=== PATIENT | male | born 1950 | race Caucasian/White ===

== ENCOUNTER 2024-10-05 08:21 | Inpatient (IN) ==
--- NOTE | 2024-09-04 10:11 | PAT Medication Instructions ---
Medication Instructions Date of Service September 04, 2024 Home Medications albuterol 90 mcg/actuation aerosol inhaler 90 mcg inhalation QID PRN amlodipine 2.5 mg tablet 2.5 mg PO QAM aspirin 81 mg capsule 81 mg PO QAM atorvastatin 40 mg tablet 40 mg PO HS lisinopril 10 mg tablet 10 mg PO QAM memantine 5 mg tablet 5 mg PO BID omeprazole 20 mg tablet,delayed release 20 mg PO QPM pregabalin 75 mg capsule 75 mg PO TID ASK your prescriber and surgeon aspirin 81 mg capsule 81 mg PO QAM DO NOT take the morning of surgery lisinopril 10 mg tablet 10 mg PO QAM Take morning of surgery With a small sip of water, OTHERWISE NOTHING TO EAT OR DRINK AFTER MIDNIGHT: albuterol 90 mcg/actuation aerosol inhaler 90 mcg inhalation QID PRN(use if needed; please bring with you to hospital day of surgery if possible) amlodipine 2.5 mg tablet 2.5 mg PO QAM memantine 5 mg tablet 5 mg PO BID pregabalin 75 mg capsule 75 mg PO TID Take evening before surgery albuterol 90 mcg/actuation aerosol inhaler 90 mcg inhalation QID PRN(if needed) atorvastatin 40 mg tablet 40 mg PO HS memantine 5 mg tablet 5 mg PO BID omeprazole 20 mg tablet,delayed release 20 mg PO QPM pregabalin 75 mg capsule 75 mg PO TID Other Notes If you have any questions please call us at [phone] or [phone] or [phone] or [phone]
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
[2024-10-05] MEDS ORDERED: PROPOFOL IV EMULSION 10 MG/ML 20 ML VIAL IV ONE (09:07)
[2024-10-05] MEDS ORDERED: ROCURONIUM BROMIDE 10 MG/ML 5 ML VIAL IV ONE (09:07)
[2024-10-05] MEDS ORDERED: DEXAMETHASONE SOD INJ 4 MG/ML VIAL ONE (09:07)
[2024-10-05] MEDS ORDERED: LIDOCAINE 2% 2 ML VIAL/AMP(20MG/ML) INFIL ONE (09:07)
[2024-10-05] MEDS ORDERED: MIDAZOLAM HCL 1 MG/ML 2ML VIAL ONE (09:07)
[2024-10-05] MEDS ORDERED: ONDANSETRON INJ 2 MG/ML 2 ML VIAL ONE (09:07)
[2024-10-05] MEDS ORDERED: SUGAMMADEX SODIUM 200 MG/2 ML VIAL IV ONE (09:08)
[2024-10-05] MEDS: GABAPENTIN 300 MG CAP PO SCH (09:20)
[2024-10-05] MEDS: ACETAMINOPHEN 500 MG TAB PO SCH (09:20)
[2024-10-05] MEDS: CeleBREX 200 MG CAP PO SCH (09:23)
--- NOTE | 2024-10-05 09:51 | History & Physical Bridge Note ---
Date of Service October 05, 2024 History & Physical Bridge Note I have examined the patient, reviewed the History & Physical and in the interval since the performance of the History & Physical I have noted the following changes of clinical significance: no changes noted
--- NOTE | 2024-10-05 09:52 | History & Physical Report ---
Date of Service October 05, 2024 Assessment & Plan (1) Two-level lumbosacral spondylosis with radiculopathy: Plan: L2-S1 fusion, L2-L4 decompression, L2-L4 hardware removal History of Present Illness Chief Complaint: Back and leg pain Primary Care Provider: Luisa Robles MD This is a 74-year-old male who presents with chronic persistent back and leg pain after failing course of nonoperative care is here for surgical invention. Allergies Allergy/AdvReac Type Severity Reaction Status Date / Time oxycodone AdvReac Mild constipatio Verified 10/05/24 08:27 n ibuprofen AdvReac Unknown G I UPSET Verified 10/05/24 08:27 Home Medications Medication Instructions Recorded Confirmed Type albuterol 90 mcg/actuation aerosol 90 mcg inhalation QID PRN sob 09/03/24 10/05/24 History inhaler amlodipine 2.5 mg tablet 2.5 mg PO QAM 09/03/24 10/05/24 History aspirin 81 mg capsule 81 mg PO QAM 09/03/24 10/05/24 History atorvastatin 40 mg tablet 40 mg PO HS 09/03/24 10/05/24 History lisinopril 10 mg tablet 10 mg PO QAM 09/03/24 10/05/24 History memantine 5 mg tablet 5 mg PO BID 09/03/24 10/05/24 History omeprazole 20 mg tablet,delayed 20 mg PO QPM 09/03/24 10/05/24 History release pregabalin 75 mg capsule 75 mg PO TID 09/03/24 10/05/24 History Tylenol Extra Strength 500 mg PO TID PRN Pain 10/05/24 10/05/24 History cholecalciferol (vitamin D3) 125 125 mcg PO BID 10/05/24 10/05/24 History mcg (5,000 unit) tablet (Vitamin D3) melatonin 10 mg PO HS PRN Sleep 10/05/24 10/05/24 History Past Med/Surg History Problem List Two-level lumbosacral spondylosis with radiculopathy Post-operative state (Acute 03/11/14) Medical History (Updated 10/05/24 @ 09:51 by Igor M Lizzie, DO) Spinal cord stimulator status [employer] and will bring remote DOS GERD (gastroesophageal reflux disease) well controlled and stable Hyperlipidemia Hypertension Chronic obstructive pulmonary disease breathing well controlled and stable Surgical History Hx of cataract surgery (09/12/24) Right cataract surgery 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) History of back surgery states had some rods placed in 2021 and then ended up with more issues from surgeon in [place] and currently using walker Hx of basal cell carcinoma excision Social History Smoking Status: Former smoker Cigarettes Per Day: 2 packs/day x 15-20 years; Smoking End Date: Quit 1999; Second Hand Exposure: No; Do You Dip or Chew Tobacco: Yes (occasional (1 can/2 weeks- advised); Tobacco Cessation Education Requested by Patient: No Hx Alcohol Use: No Hx Substance Use: No Preferred Language: Sami Communication Ability: Effective Beef Grader Required: No Beliefs That Will Affect Care: None Current Living Situation: Spouse Other Information That Helps Us Care for You: No Feels Safe at Home: Yes Safety Concerns: Feels Safe At This Time Assistive Devices: Cane, Glasses and Walker Physical Exam Physical Exam: Patient is alert and oriented Heart regular rhythm lungs clear Results & Data Results & Data Vital Signs (Past 12 Hours) Vital Signs Temp Pulse Resp BP O2 Del Method 10/05/24 08:46 36.5 C 62 18 188/94 H Room Air
[2024-10-05] MEDS: LR 15ML/HR IV SCH (10:00)
[2024-10-05] MEDS ORDERED: ALBUMIN HUMAN 5% 12.5 GM/250 ML VIAL IV ONE (10:06)
[2024-10-05] MEDS: LR 60ML/HR IV SCH (10:33)
[2024-10-05] MEDS: ceFAZolin 330 MG/ML 1 GM VIAL ONE (11:09)
[2024-10-05] MEDS: BUPIVACAINE/EPINEPHRINE 0.25% 1:200,000 30 ML VIAL ONE (11:09)
[2024-10-05] MEDS: SURGICEL ABSORB HEMOSTAT 2IN X 14IN TOP ONE (11:21)
[2024-10-05] MEDS: FLOSEAL HEMOSTATIC MATRIX 10ML TOP ONE (13:18)
[2024-10-05] MEDS ORDERED: SODIUM CHLORIDE 0.9% PF INJ 10 ML VIAL ONE (13:25)
[2024-10-05] MEDS ORDERED: HYDROmorphone INJ 2 MG/ML SYR/VIAL ONE (13:25)
--- NOTE | 2024-10-05 13:36 | Operative Report ---
Post Operative Report Pre & Post Diagnosis Operation Date: 10/05/24 10:05 Pre-Op Diagnosis: Two-Level Lumbosacral Spondylosis with Radiculopathy Post-Op Diagnosis: Two-Level Lumbosacral Spondylosis with Radiculopathy I identified the patient and participated in the time-out.: Yes Procedure Operation Date: 10/05/24 10:05 Actual Procedures #1 removal of posterior instrumentation L2-L4. #2 exploration of fusion L2-L4. #3 lumbar decompression with bilateral medial facetectomies and foraminotomies L4-L5 L5-S1. #4 posterior spinal fusion L4-S1. #5 placement posterior instrumentation L4-S1 using camber. #6 interbody fusion L4-L5 L5-S1. #7 placement Spira 12 x 26 mm x 2 at L4-5 and 10 x 26 mm x 2 at L5-S1. #8 placement locally harvested morselized autograft and posterior gutters. #9 please infuse collagen sponge bath Koros in the posterior lateral gutters and os design interbody space. #10 placement of versa wrap over the exposed dura. Surgeon Igor Samuel, DO Numerical Tool Programmer Romero Apple Estimated Blood Loss 900 Findings Consistent with Post-Op Diagnosis Specimens None Indications This is a 74-year-old male presents from his diagnosis of failed course of nonoperative care is here for surgical intervention. Description of Procedure Patient was met with identified informed consent obtained. Patient was then taken to the operative suite underwent intubation placed in a prone position on the Lee table atop the Jose Cruz frame. All bony prominences well-padded eyes inspected to ensure no external pressure placed upon them. This point the lumbar spine was prepped and draped in normal sterile fashion. Sharp dissection with the assistance of Bovie cautery from down to and exposing the instrumentation at L2-L3-L4 and the lamina and transverse processes of L4-L5 and the sacral ala bilaterally. And then proceeded move the hardware bilaterally from L2-L4. I explored the fusion mass noting it to be mature and intact. And performed a complete laminectomy of L5 with bilateral medial facetectomies and foraminotomies followed by complete laminectomy of L4 with bilateral medial facetectomies and foraminotomies addressing severe neural compression at all levels. Pedicle screws were then placed at L4-L5 and S1 levels bilaterally with assistance of fluoroscopy and appropriate sized jolene contoured and placed. By way of transforaminal approach on the left a discectomy of all 5 S1 was performed endplates curetted to subcortical bleeding bone and a 10 x 26 mm spiral cage tapped in position. Then proceeded to the right transforaminal region at L5-S1. Discectomy performed. Endplates guided to subcortical bony bone. A second 10 x 26 mm spiral cage tapped into position. Then proceeded to L4-[address] of transforaminal approach on the right discectomy was performed. Endplates coated to subcortical bleeding bone and a 12 x 26 mm spiral cage jomar ed into position. This time I then proceeded to the left transforaminal region at L4-5 and again performed a discectomy. Endplates guided to subcortical bleeding bone and a second 12 x 26 mm spiral cage tapped into position. Please note all cages were packed with os design bone graft. The rods were then locked in a 5 position bilaterally. The transverse processes of L for L5 and the sacral ala burred to subcortical bleeding bone. Infuse collagen sponge, with Koros and local autograft placed in the posterior gutters. First wrap placed over the exposed dura. 15 round TEJ drain inserted. The incision was then closed with 1 Vicryl the fascia 2-0 Vicryl subcutaneously and 4 Monocryl for final skin closure. Steri-Strips sterile dressing placed. Patient waken taken PACU stable condition. Please note Romero Apple was present the patient positioning complex question surgery and final skin closure. Im ordering 10 grams of Collagen Powder ([facility] A6010 Primary Dressing) and 10 bordered super absorbent ([facility] A6196 Secondary Dressing) to treat an incision wound that was caused by a spine procedure. The incision is approximately 2 cm(W) x 2 cm(L) down to the spinal column and epidural space 2 cm (D) in size and is a full thickness wound showing no signs of infection. Collagen comes in 1 gram packets so 10 packets were ordered. Given the size of the wound, with moderate exudate I chose to order a 10 day supply. The patient will be provided instructions for proper application of the collagen wound kit. The patient will be asked to apply the collagen powder daily and then cover it with sterile dressings dispensed. Collagen was selected as I expect the collagen to attract monocytes and fibroblasts, act as a sacrificial substrate for MMPs, and ultimately proved a matrix for tissue and vessel growth. The collagen will act as a primary dressing in this scenario. It is medically necessary for proper healing of these wounds to improve bioavailability and contact with each wound surface, this is also to help prevent infection of wounds and promote healing ultimately leading to a better healing outcome and limit the risk of infection. I attest to the content of the Intraoperative Record and any orders documented therein. Any exceptions are noted below.
[2024-10-05] MEDS ORDERED: PROMETHAZINE HCL 6.25 MG in SODIUM CHLORIDE 0.9% 50 ML IV PRN (14:55)
[2024-10-05] MEDS ORDERED: ATROPINE SULFATE 0.1 MG/ML 10ML SYR IV PRN (14:55)
[2024-10-05] MEDS ORDERED: HYDROmorphone INJ 2 MG/ML SYR/VIAL IV PRN (14:55)
[2024-10-05 15:10] LABS: Hematocrit (blood only) 29.6 % (42.0-52.0); Hemoglobin 9.5 g/dl (14.0-18.0)
--- NOTE | 2024-10-05 15:10 | Anesthesiology Progress Note ---
Date of Service October 05, 2024 Anesthesia Post Procedure Vital Signs Vital Signs: Temp Pulse Resp BP Pulse Ox O2 Del Method O2 Flow Rate 10/05/24 14:40 67 14 189/83 H 99 Oxymask 5 10/05/24 14:30 67 15 182/92 H 99 Oxymask 5 10/05/24 14:20 69 18 178/99 H 98 Oxymask 5 10/05/24 14:10 72 18 145/92 H 98 Oxymask 5 10/05/24 14:01 36.1 C L 74 18 166/97 H 99 Oxymask 5 10/05/24 08:46 36.5 C 62 18 188/94 H Room Air Transfer of Care Handoff Completed per policy Notes Mental Status: alert / awake / arousable and participated in evaluation Nausea / Vomiting: adequately controlled Pain: adequately controlled Airway Patency, RR, SpO2: stable & adequate BP & HR: stable & adequate and see Notes below Hydration State: stable & adequate Anesthetic Complications: no major complications apparent and Pt Satisfied with anesthetic care Notes: Pt with blood in urinary catheter with no urine flow. Bladder scan revealed ~300 ml urine on arrival to PACU increasing to 400 on repeat ~1 hour later. This was communicated to Dr. Samuel.
--- NOTE | 2024-10-05 15:31 | Fluoroscopy Report ---
INTRAOPERATIVE RADIOGRAPHS CLINICAL HISTORY: L2-S1 spinal fusion. Fluoro time: 28 seconds Ka,r: 19.55 mGy FINDINGS: 2 spot fluoroscopic views of the lumbar spine are presented. There is evidence of discectom y at L2-L3, L3-L4, L4-L5, and L5-S1. There or findings of multilevel laminectomy and posterior fusion . Interpedicular screws are seen within the bodies of L4, L5, and S1. The hardware appears intact. A neurostimulator device is partially imaged. IMPRESSION: Intraoperative images from lumbar spinal fusion surgery as above. Electronically signed by: Adam Lanza M.D. 10/05/2024 3:30 PM
[2024-10-05] MEDS ORDERED: ALUMINUM/MAGNESIUM SUSP 30 ML UDC PO PRN (15:58)
[2024-10-05] MEDS ORDERED: SOD PHOSPHATE/SOD BIPHOSPHATE ENEMA 132 ML BTL PR PRN (15:58)
[2024-10-05] MEDS ORDERED: FAMOTIDINE 20 MG TAB PO PRN (15:58)
[2024-10-05] MEDS ORDERED: ACETAMINOPHEN 500 MG TAB PO PRN (15:58)
[2024-10-05] MEDS ORDERED: HYDROmorphone INJ 0.5 MG/0.5 ML SYR IV PRN (15:58)
[2024-10-05] MEDS ORDERED: DO NOT ADMINISTER FLU VACCINE PRN (15:58)
[2024-10-05] MEDS ORDERED: ONDANSETRON 4 MG OD TAB PO PRN (15:58)
[2024-10-05] MEDS ORDERED: DO NOT ADMINISTER PNEUMOCOCCAL VACCINE PRN (15:58)
[2024-10-05] MEDS ORDERED: PROMETHAZINE 12.5 MG/50.5 ML BAG IV PRN (15:58)
[2024-10-05] MEDS ORDERED: ACETAMINOPHEN 1,000 MG/100 ML VIAL IV PRN (15:58)
[2024-10-05] MEDS ORDERED: MAGNESIUM HYDROXIDE SUSP 30 ML UDC PO PRN (15:58)
[2024-10-05] MEDS ORDERED: HYDROmorphone INJ 1 MG/ML SYRINGE IV PRN (15:58)
[2024-10-05] MEDS ORDERED: HYDROCODONE/ACETAMOPHEN 5/325MG TAB PO PRN (15:58)
[2024-10-05] MEDS ORDERED: LORazepam 0.5 MG TAB PO PRN (15:58)
[2024-10-05] MEDS ORDERED: diphenhydrAMINE Capsule 25 MG CAP PO PRN (15:58)
[2024-10-05] MEDS ORDERED: NALOXONE HCL 0.4 MG/1 ML VIAL/CARP IV PRN (15:58)
[2024-10-05] MEDS ORDERED: MELATONIN 3 MG TAB PO PRN (15:58)
[2024-10-05] MEDS ORDERED: ALBUTEROL HFA 8 GM INHALER INH PRN (16:10)
--- NOTE | 2024-10-05 16:35 | Consultation ---
Date of Consultation October 05, 2024 Assessment & Plan (1) Post-operative state: (2) Two-level lumbosacral spondylosis with radiculopathy: Two-Level Lumbosacral Spondylosis with Radiculopathy -S/P lumbar decompression, fusion surgery by Dr. Samuel on 10/05/2024 Postoperative acute blood loss anemia Pain is controlled Monitor CBC Bowel regimen to prevent constipation Activity & DVT Px as per Primary team Incentive spirometry PT OT when appropriate No indication for blood transfusion currently Bladder scan as needed Hypertension Continue lisinopril, amlodipine with holding parameters Monitor blood pressure Hyperlipidemia Continue atorvastatin COPD Quit smoking many years ago Currently no signs of exacerbation Not on any maintenance inhalers GERD Continue Protonix DVT Px: as per Primary team CODE STATUS Full code History of Present Illness Requesting Physician: Dr. Samuel Reason for Consultation: Postop medical management Attending Physician: Igor Samuel, DO History of Present Illness Patient is a 74-year-old male with history of hypertension, hyperlipidemia, COPD, prior tobacco use, GERD and other medical problems was consulted for postop medical management. Patient admits to have pain at catheter site which resolved after changing the catheter. He denies any significant back pain at surgical site but admits to have mild tingling of the feet bilaterally. Denies any history of chest pain, dyspnea, dizziness, cough, fever, chills, headache, nausea, vomiting, abdominal pain, dysuria. Allergies Allergy/AdvReac Type Severity Reaction Status Date / Time oxycodone AdvReac Mild constipatio Verified 10/05/24 08:27 n ibuprofen AdvReac Unknown G I UPSET Verified 10/05/24 08:27 Home Medications Medication Instructions Recorded Confirmed Type albuterol 90 mcg/actuation aerosol 90 mcg inhalation QID PRN sob 09/03/24 10/05/24 History inhaler amlodipine 2.5 mg tablet 2.5 mg PO QAM 09/03/24 10/05/24 History aspirin 81 mg capsule 81 mg PO QAM 09/03/24 10/05/24 History atorvastatin 40 mg tablet 40 mg PO HS 09/03/24 10/05/24 History lisinopril 10 mg tablet 10 mg PO QAM 09/03/24 10/05/24 History memantine 5 mg tablet 5 mg PO BID 09/03/24 10/05/24 History omeprazole 20 mg tablet,delayed 20 mg PO QPM 09/03/24 10/05/24 History release pregabalin 75 mg capsule 75 mg PO TID 09/03/24 10/05/24 History Tylenol Extra Strength 500 mg PO TID PRN Pain 10/05/24 10/05/24 History cholecalciferol (vitamin D3) 125 125 mcg PO BID 10/05/24 10/05/24 History mcg (5,000 unit) tablet (Vitamin D3) melatonin 10 mg PO HS PRN Sleep 10/05/24 10/05/24 History Patient History Medical History Spinal cord stimulator status [employer] and will bring remote DOS GERD (gastroesophageal reflux disease) well controlled and stable Hyperlipidemia Hypertension Chronic obstructive pulmonary disease breathing well controlled and stable Surgical History Hx of cataract surgery (09/12/24) Right cataract surgery 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) History of back surgery states had some rods placed in 2021 and then ended up with more issues from surgeon in [place] and currently using walker Hx of basal cell carcinoma excision Social History Smoking Status: Former smoker Cigarettes Per Day: 2 packs/day x 15-20 years; Smoking End Date: Quit 1999; Second Hand Exposure: No; Do You Dip or Chew Tobacco: Yes (occasional (1 can/2 weeks- advised); Tobacco Cessation Education Requested by Patient: No Hx Alcohol Use: No Hx Substance Use: No Preferred Language: Maori Communication Ability: Effective Managing Consultant Clinical Professor Required: No Beliefs That Will Affect Care: None Current Living Situation: Spouse Other Information That Helps Us Care for You: No Feels Safe at Home: Yes Safety Concerns: Feels Safe At This Time Assistive Devices: Cane, Glasses and Walker Review of Systems Review of Systems: All systems reviewed & are unremarkable except as noted in Subjective Physical Exam Physical Exam: Physical Exam: Vitals signs as noted above General Appearance:Moderately built and nourished, no apparent distress Head: normocephalic, Atraumatic Eyes: normal inspection, EOMI Neck: supple, Trachea midline Respiratory/Chest: Normal breath sounds, CTA, No accessory muscle use Cardiovascular: S1, S2, No murmur Abdomen/GI:Soft, Non tender, Bowel sounds present Back: Surgical site in dressing, +drain :+Fernandes Extremities/Musculoskeletal:normal inspection, no edema Neurologic/Psych:AAOX3, grossly no focal neurological deficits Skin: normal color, warm Results & Data Vital Signs (Past 12 Hours) Vital Signs Temp Pulse Pulse Resp BP Pulse Ox O2 Del Method 10/05/24 16:23 71 142/85 H 92 Room Air 10/05/24 15:45 36.3 C L 72 18 136/86 93 Room Air 10/05/24 15:30 71 15 170/89 H 98 Nasal Cannula 10/05/24 15:20 36.4 C L 71 15 181/90 H 98 Nasal Cannula 10/05/24 15:10 74 15 181/90 H 98 Nasal Cannula 10/05/24 15:00 66 15 178/89 H 98 Nasal Cannula 10/05/24 14:50 67 15 160/81 H 98 Nasal Cannula 10/05/24 14:40 67 14 189/83 H 99 Oxymask 10/05/24 14:30 67 15 182/92 H 99 Oxymask 10/05/24 14:20 69 18 178/99 H 98 Oxymask 10/05/24 14:10 72 18 145/92 H 98 Oxymask 10/05/24 14:01 36.1 C L 74 18 166/97 H 99 Oxymask 10/05/24 08:46 36.5 C 62 18 188/94 H Room Air O2 Flow Rate 10/05/24 16:23 10/05/24 15:45 10/05/24 15:30 2 10/05/24 15:20 2 10/05/24 15:10 2 10/05/24 15:00 2 10/05/24 14:50 2 10/05/24 14:40 5 10/05/24 14:30 5 10/05/24 14:20 5 10/05/24 14:10 5 10/05/24 14:01 5 10/05/24 08:46 Laboratory Results Short CBC 10/05/24 Range/Units 14:38 Hgb 9.5 L (14.0-18.0) g/dl Hct 29.6 L (42.0-52.0) % Diagnostic Findings Lumbar X ray:2 spot fluoroscopic views of the lumbar spine are presented. There is evidence of discectomy at L2-L3, L3-L4, L4-L5, and L5-S1. There or findings of multilevel laminectomy and posterior fusion. Interpedicular screws are seen within the bodies of L4, L5, and S1. The hardware appears intact. A neurostimulator device is partially imaged. Medications Administered Home Medications Medication Instructions Recorded Confirmed albuterol 90 mcg/actuation aerosol 90 mcg inhalation QID PRN sob 09/03/24 10/05/24 inhaler amlodipine 2.5 mg tablet 2.5 mg PO QAM 09/03/24 10/05/24 aspirin 81 mg capsule 81 mg PO QAM 09/03/24 10/05/24 atorvastatin 40 mg tablet 40 mg PO HS 09/03/24 10/05/24 lisinopril 10 mg tablet 10 mg PO QAM 09/03/24 10/05/24 memantine 5 mg tablet 5 mg PO BID 09/03/24 10/05/24 omeprazole 20 mg tablet,delayed 20 mg PO QPM 09/03/24 10/05/24 release pregabalin 75 mg capsule 75 mg PO TID 09/03/24 10/05/24 Tylenol Extra Strength 500 mg PO TID PRN Pain 10/05/24 10/05/24 cholecalciferol (vitamin D3) 125 125 mcg PO BID 10/05/24 10/05/24 mcg (5,000 unit) tablet (Vitamin D3) melatonin 10 mg PO HS PRN Sleep 10/05/24 10/05/24
[2024-10-05] MEDS: LACTATED RINGER'S 1,000 ML IV SCH (17:55)
[2024-10-05] MEDS: PREGABALIN 75 MG CAP PO SCH (17:55)
[2024-10-05] MEDS: ONDANSETRON INJ 2 MG/ML 2 ML VIAL IV PRN (18:06)
[2024-10-05] MEDS: METOCLOPRAMIDE HCL INJ 5 MG/ML 2 ML VIAL IV PRN (19:11)
[2024-10-05] MEDS: DOCUSATE SODIUM/SENNA 50/8.6MG TAB PO SCH (20:19)
[2024-10-05] MEDS: MEMANTINE HCL 5 MG TAB PO SCH (20:19)
[2024-10-05] MEDS: CHOLECALCIFEROL 125 MCG (5,000 UNITS) TAB PO SCH (20:19)
[2024-10-05] MEDS: ATORVASTATIN 40 MG TAB PO SCH (20:19)
[2024-10-06] MEDS: POLYETHYLENE (MIRALAX) 17 GM PACK PO SCH (05:08)
[2024-10-06 07:31] LABS: Hematocrit (blood only) 25.4 % (42.0-52.0); Hemoglobin 8.3 g/dl (14.0-18.0); Immature Granulocytes # (auto) 0.03 K/uL (0.01-0.20); Immature Granulocytes % (auto) 0.3 %; Mean Corpuscular Hemoglobin 29.5 pg (25.0-34.0); Mean Corpuscular Volume 90.4 fL (80.0-100.0); Platelet Count 155 K/uL (130-400); RDW Standard Deviation 48.0 fL (36.4-46.3); Red Blood Count 2.81 M/uL (4.70-6.10); White Blood Count 9.89 K/ul (4.8-10.8)
[2024-10-06 07:38] LABS: Anion Gap 5.0 (3-11); Blood Urea Nitrogen 16.0 mg/dl (6-23); Calcium 8.5 mg/dl (8.6-10.3); Carbon Dioxide 30.0 mmol/L (21-32); Chloride 103.0 mmol/L (98-107); Creatinine Clr Calc Pharmacy 86.9 ml/min; Glucose 111.0 mg/dl (70-99(Fasting)); Potassium 4.6 mmol/L (3.5-5.1); Sodium 138.0 mmol/L (136-145)
--- NOTE | 2024-10-06 08:04 | Orthopedic Progress Note ---
Date of Service October 06, 2024 Assessment & Plan (1) Two-level lumbosacral spondylosis with radiculopathy: Plan: At this point we will initiate physical therapy monitor his TEJ operatively discharge from the next few days. Admission and Anticipated Discharge Date Admission Date: October 05, 2024 Subjective Patient's back pain is controlled leg pain improved Physical Exam Physical Exam: Patient is currently in bed. He is comfortable. Is constricted testing. Results & Data Vital Signs (Past 12 Hours) Vital Signs Temp Pulse Resp BP Pulse Ox O2 Del Method 10/06/24 07:37 36.5 C 77 16 123/54 L 99 Room Air 10/05/24 21:23 36.3 C L 74 16 127/78 96 Room Air Queries Orthopedic Spine Acute Posthemorrhagic Anemia: Yes
[2024-10-06] MEDS: ASPIRIN 81 MG ECTAB PO SCH (08:20)
[2024-10-06] MEDS: dexAMETHasone 6 MG in SYRINGE 0 ML IV SCH (08:22)
[2024-10-06] MEDS: prednisoLONE acetate 1% OP SUSP 5 ML BTL OP SCH (13:56)
[2024-10-06] MEDS: OFLOXACIN 0.3% 75 DROPS/5 ML BTL OP SCH (13:56)
[2024-10-06] MEDS: KETOROLAC 0.5% OP SOLN 5 ML BTL OP SCH (13:56)
--- NOTE | 2024-10-06 14:07 | Hospitalist Progress Note ---
Date of Service October 06, 2024 Assessment & Plan (1) Post-operative state: (2) Two-level lumbosacral spondylosis with radiculopathy: Plan: Two-Level Lumbosacral Spondylosis with Radiculopathy -S/P lumbar decompression, fusion surgery by Dr. Samuel on 10/05/2024 Postoperative acute blood loss anemia Pain control with analgesics Bowel regimen to prevent constipation Activity & DVT Px as per Primary team Incentive spirometry PT OT when appropriate No indication for blood transfusion currently Bladder scan as needed Hypertension Continue lisinopril, amlodipine with holding parameters Monitor blood pressure Hyperlipidemia Continue atorvastatin COPD Quit smoking many years ago Currently no signs of exacerbation Not on any maintenance inhalers GERD Continue Protonix DVT Px: as per Primary team CODE STATUS Full code Admission and Anticipated Discharge Date Admission Date: October 05, 2024 Subjective Patient seen and examined at bedside. Comfortable; not in distress. Denies fever, chills, chest pain, shortness of breath, abdominal pain or urinary symptoms. No significant overnight events Review of Systems Review of Systems: All systems reviewed & are unremarkable except as noted in Subjective Physical Exam Physical Exam: Physical Exam: Vitals signs as noted above General Appearance:Moderately built and nourished, no apparent distress Respiratory/Chest: Normal breath sounds, CTA, No accessory muscle use Cardiovascular: S1, S2, No murmur Abdomen/GI:Soft, Non tender, Bowel sounds present Back: Surgical site in dressing, +drain :+Fernandes Extremities/Musculoskeletal:normal inspection, no edema Neurologic/Psych:AAOX3, grossly no focal neurological deficits Skin: normal color, warm Results & Data Results & Data Vital Signs (Past 12 Hours) Vital Signs Temp Pulse Resp BP Pulse Ox O2 Del Method 10/06/24 07:37 36.5 C 77 16 123/54 L 99 Room Air
--- NOTE | 2024-10-07 09:39 | Orthopedic Progress Note ---
Date of Service October 07, 2024 Assessment & Plan (1) Two-level lumbosacral spondylosis with radiculopathy: Plan: At this time we will continue physical therapy monitor his TEJ output possible discharge home tomorrow. Admission and Anticipated Discharge Date Admission Date: October 05, 2024 Subjective Patient's back pain is controlled leg symptoms improved. Physical Exam Physical Exam: Patient is in the chair at the bedside. Is comfortable. Good strength testing. Results & Data Vital Signs (Past 12 Hours) Vital Signs Temp Pulse Resp BP Pulse Ox O2 Del Method 10/07/24 07:36 36.7 C 65 16 126/64 95 Room Air Queries Orthopedic Spine Acute Posthemorrhagic Anemia: Yes
--- NOTE | 2024-10-07 13:32 | Hospitalist Progress Note ---
Date of Service October 07, 2024 Assessment & Plan (1) Post-operative state: (2) Two-level lumbosacral spondylosis with radiculopathy: Plan: Two-Level Lumbosacral Spondylosis with Radiculopathy -S/P lumbar decompression, fusion surgery by Dr. Samuel on 10/05/2024 Postoperative acute blood loss anemia Pain control with analgesics Bowel regimen to prevent constipation Activity & DVT Px as per Primary team Incentive spirometry PT OT No indication for blood transfusion currently Hypertension Continue lisinopril, amlodipine with holding parameters Monitor blood pressure Hyperlipidemia Continue atorvastatin COPD Quit smoking many years ago Currently no signs of exacerbation Not on any maintenance inhalers GERD Continue Protonix DVT Px: as per Primary team CODE STATUS Full code Admission and Anticipated Discharge Date Admission Date: October 05, 2024 Subjective Patient seen and examined at bedside. Comfortable; not in distress. Denies fever, chills, chest pain, shortness of breath, abdominal pain or urinary symptoms. No significant overnight events Review of Systems Review of Systems: All systems reviewed & are unremarkable except as noted in Subjective Physical Exam Physical Exam: Physical Exam: General Appearance:Moderately built and nourished, no apparent distress Respiratory/Chest: Normal breath sounds, CTA, No accessory muscle use Cardiovascular: S1, S2, No murmur Abdomen/GI:Soft, Non tender, Bowel sounds present Back: Surgical site in dressing, +drain Extremities/Musculoskeletal:normal inspection, no edema Neurologic/Psych:AAOX3, grossly no focal neurological deficits Skin: normal color, warm Results & Data Results & Data Vital Signs (Past 12 Hours) Vital Signs Temp Pulse Resp BP Pulse Ox O2 Del Method 10/07/24 07:36 36.7 C 65 16 126/64 95 Room Air
--- NOTE | 2024-10-08 12:04 | Discharge Summary ---
Date of Service October 08, 2024 Admission HPI Per Admitting Provider This is a 74-year-old male who presents with chronic persistent back and leg pain after failing course of nonoperative care is here for surgical invention. Principal Diagnosis Lumbar spondylosis with radiculopathy Discharge Data Allergies Allergy/AdvReac Type Severity Reaction Status Date / Time oxycodone AdvReac Mild constipatio Verified 10/05/24 08:27 n ibuprofen AdvReac Unknown G I UPSET Verified 10/05/24 08:27 Consultations 10/05/24 15:58 Consult Hospitalist Routine Procedures Performed Operation Date: 10/05/24 10:05 Actual Procedures p L2-S1 Fusion, L4-S1 Decompression, (Not Applicable) - Igor Samuel DO s L2-L4 Hardware Removal(Not Applicable) - Igor Samuel DO Ordered Studies 10/05/24 10:05 FL lumbar spine 2-3V Routine Hospital Course (1) Two-level lumbosacral spondylosis with radiculopathy: Patient with multilevel lumbar depression fusion to her liver taken to the orthopedic for postoperative. Postop day progressed appropriate. Marked improvement of his leg pain. Back pain controlled. TEJ drain decreasing. Good strength testing. Subsidy discharged home. Discharge orders and instructions from the chart for further review. Total Time Total Time Spent Total Time Spent (In Minutes): 20 minutes Discharge Plan Discharge Items Patient Disposition: Home - Self-Care Reason For Visit: Two-Level Lumbosacral Spondylosis with Radiculopat Discharge Diagnosis: Multilevel lumbar sacral spondylosis with radiculopathy Activity: As commented below Non-emergency contact: Primary Care Provider Call non-emergency contact if: you have any medication questions Follow-up/Referrals: Luisa Robles MD [Primary Care Provider] - Ruben Ann MD [Outside Practitioners] - 10/10/24 12:20 pm (already scheduled appointment.) Diet: Regular Addtl Attending Provider Instructions: ACTIVITY RECOMMENDATIONS: SELF CARE INSTRUCTIONS AFTER THORACIC/LUMBAR FUSIONS 1. You may walk to your tolerance. It is good exercise for your legs and back. Expect some back and intermittent leg aches and pains. 2. You may perform "counter-top" level activities (make a sandwich, arlen with a project, etc.). 3. No bending or lifting of more than 10 pounds or back twisting of any nature (roll like a log when turning in bed). 4. You may ride in a car for 20-30 minutes at a time. No driving until after your first visit with your doctor. 5. Frequent changes of position and restricting sitting to 30 minutes at a time will help limit the amount of back spasms and stiffness you may experience. 6. You may discontinue the use of ambulatory aids (cane, crutches, etc.) once your strength and confidence allow. 7. You may licensed practical nurse instructor the shower and let water strike your incision when you arri ve home at least once daily. Do not take a tub bath, sit in a hot tub or go into a swimming pool until after your first recheck in the office. 8. You may resume previous diet. SPECIAL CARE INSTRUCTIONS: VERY IMPORTANT TO READ AND REVIEW A. Your surgical incision has been closed with a cosmetic suture under the skin that will dissolve in about 6 weeks. In 14 days, you can use a pair of clean scissors and cut the suture that is left outside of the skin at the ends of your incision. 1. The small skin tapes can be removed 7 days after surgery if they have not fallen off by that point. 2. You may keep the wound open to air as much as possible to promote healing after post-op day number 5 unless told otherwise by your doctor. 3. If you think the wound looks like it is becoming infected (redness or worsening drainage) and/or you are experiencing fever, chill or worsening back pain and muscle spasms, contact the office so that we may evaluate you as soon as possible. B. Complications are uncommon, but please contact us if you have any signs or symptoms of: 1. wound infection (fever higher than 102.5 degrees F, redness, separation of wound, drainage, or increasing pain from the incision) 2. blood clots in legs (pain, swelling, redness and warmth in legs) 3. urinary tract infection (fever higher than 102.5 degrees F, burning upon urination or increased frequency of urination) 4. nerve problems (inability to walk on your toes or heels, numbness, loss of bowel or bladder control) 5. any other symptoms that concern you C. Please call the office at if you have any concerns or questions about your operation or recovery. D. No smoking! Smoking drastically decreases the chance of a solid fusion. E. Do not take any anti-inflammatory medications (Indocin, Advil, Motrin, Aspirin, Naprosyn, etc.) as these may inhibit the chance of a solid fusion. Tylenol is okay to take for pain. MANAGING PAIN AFTER SPINAL SURGERY 1. Narcotic medication is intended for short-term use and will be provided for surgical pain. Surgical pain usually lasts for a period of 4-6 weeks. Narcotic medication includes Percocet, Vicodin, Darvocet, Tylenol #3 or Lortab. 2. Longer-term pain is more appropriately treated with non-narcotic medication such as Tylenol ES. 3. Muscle spasm is not appropriately treated with narcotics. Muscle relaxers such as Soma, Flexeril or Skelaxin can be used along with Tylenol ES. 4. Remember that we all live with some "aches and pains". This is not unusual or uncommon after an injury or as we get older. a. Back pain is expected and may include muscle spasms for 4 to 6 weeks after surgery. The pain should gradually improve. If the pain worsens for no apparent reason, please contact the office. b. Intermittent leg pain may also be experienced and should not be concerned about unless it worsens for no apparent reason. If so, please contact the office. 5. We will provide appropriate medication within the normal guidelines of their prescribed use. We will also be very cautious and aware of potential abuse and extended duration of patients' medication needs. a. Pain medications are for your comfort and to assist with sleep and rest so that the tissue can heal. They are not provided in order to return to normal activity and should not be used through the day. To do so or worsening pain at night can result from ongoing tissue damage and development of tolerance to the prescribed medicine. 6. Please allow 2-3 days to process refills. Prescriptions will not be mailed but must be picked up at the office. FOLLOW UP VISIT: Keep your scheduled follow-up appointment. Any questions, please call the office at . Pending Studies at Discharge: No Stand-Alone Forms: [employer], Smoking Cessation Medications and DC Order Prescriptions: New hydrocodone-acetaminophen 5-325 mg tablet 1 tab PO Q6H PRN (Reason: pain) Qty: 30 0RF tramadol 50 mg tablet 50 mg PO Q6H PRN (Reason: pain, moderate) Qty: 30 0RF Continued atorvastatin 40 mg Tablet 40 mg PO HS amlodipine 2.5 mg Tablet 2.5 mg PO QAM lisinopril 10 mg Tablet 10 mg PO QAM albuterol 90 mcg/actuation Aerosol 90 mcg INHALATION QID PRN (Reason: sob) memantine 5 mg Tablet 5 mg PO BID pregabalin 75 mg Capsule 75 mg PO TID omeprazole 20 mg Tablet,Delayed Release (Dr/Ec) 20 mg PO QPM aspirin 81 mg Capsule 81 mg PO QAM Tylenol Extra Strength 500 mg PO TID PRN (Reason: Pain) cholecalciferol (vitamin D3) [Vitamin D3] 125 mcg (5,000 unit) Tablet 125 mcg PO BID melatonin 10 mg PO HS PRN (Reason: Sleep) Discharge Orders: Discharge Order (Routine); Ordered 10/08/24 Ordered By: Igor Samule Admission Data Admit Date/Time: 10/05/24 13:41 Attending Provider: Igor Samuel Admit Provider: Igor Samuel Primary Care Provider: Luisa Robles Other Providers: Mckenzie Gonzales
--- NOTE | 2024-10-08 12:55 | Hospitalist Progress Note ---
Date of Service October 08, 2024 Assessment & Plan (1) Post-operative state: (2) Two-level lumbosacral spondylosis with radiculopathy: Plan: Two-Level Lumbosacral Spondylosis with Radiculopathy -S/P lumbar decompression, fusion surgery by Dr. Samuel on 10/05/2024 Postoperative acute blood loss anemia Pain control with analgesics Bowel regimen to prevent constipation Activity & DVT Px as per Primary team Incentive spirometry PT OT as outpatient Hypertension Continue lisinopril, amlodipine with holding parameters Monitor blood pressure Hyperlipidemia Continue atorvastatin COPD Quit smoking many years ago Currently no signs of exacerbation Not on any maintenance inhalers GERD Continue Protonix DVT Px: as per Primary team CODE STATUS Full code Admission and Anticipated Discharge Date Admission Date: October 05, 2024 Subjective Patient seen and examined at bedside. He is comfortable; not in distress Denies any pain or discomfort. No significant events overnight Review of Systems Review of Systems: All systems reviewed & are unremarkable except as noted in Subjective Physical Exam Physical Exam: Physical Exam: General Appearance:Moderately built and nourished, no apparent distress Respiratory/Chest: Normal breath sounds, CTA, No accessory muscle use Cardiovascular: S1, S2, No murmur Abdomen/GI:Soft, Non tender, Bowel sounds present Back: Surgical site in dressing, +drain Extremities/Musculoskeletal:normal inspection, no edema Neurologic/Psych:AAOX3, grossly no focal neurological deficits Skin: normal color, warm Results & Data Results & Data Vital Signs (Past 12 Hours) Vital Signs Temp Pulse Pulse Pulse Resp BP BP 10/08/24 12:30 36.4 C L 71 65 70 18 142/85 H 10/08/24 07:22 36.4 C L 65 18 156/76 H Pulse Ox O2 Del Method 10/08/24 12:30 95 10/08/24 07:22 95 Room Air
[2024-10-08 13:11] VITALS: BP 120/70; PULSE 66; RESP 13; TEMP 97.3; O2SAT 96
== END 2024-10-08 14:19 | disposition home or self-care (01) | DRG 427 ==
LOC: ASU 08:21 → 3N 13:41